=== PATIENT | male | born 1955 | race Two or more races ===

== ENCOUNTER 2020-04-23 07:12 | Emergency (ER) | payer OTHER ==
[~2020-04-23] VITALS: Ht 162.6 cm; Wt 54.0 kg
--- NOTE | 2020-04-23 07:11 | NUR ---
ED Nurse Note: pt biba RA [id number] from half-way for callous-like hardened area on bilatereal sole of feet. No open skin noted, no drainage, no redness, no inflamattion or signs of infection noted. Pt reports he has had this callous for 3 years but has recently become more painful in the last day, rates pain 5/10.
[2020-04-23 07:12] VITALS: BP 153/79
[2020-04-23] MEDS ORDERED: IBUPROFEN600 M1 ORAL (07:20)
[2020-04-23] MEDS ORDERED: [UNRECOGNIZED DRUG - OTHER] TP (07:20)
--- NOTE | 2020-04-23 07:23 | Emergency Room Report ---
History of Present Illness General Chief Complaint: General Complaint Source: Patient Present Illness HPI Disclaimer: Please note that this report is being documented using DRAGON technology. This can lead to erroneous entry secondary to incorrect interpretation by the dictating instrument. HPI: 65-year-old male presents for evaluation of bilateral foot pain. Patient states he has had chronic wounds over the feet for the past 4 years. Has been using a medicated lotion for the past 4 months with some improvement. [facility] complaining of worsening pain. Denies new injury. Denies numbness or tingling. Does not follow podiatry. Denies skin breakdown, bleeding, bruising, mass, purulence, erythema. PMH: Hypertension, hyperlipidemia, pancreatitis PSH: Reviewed Allergies: Denied Social Hx: Daily tobacco use Allergies: Coded Allergies: No Known Allergies (Unverified , 04/23/20) COVID-19 Screening Contact w/high risk pt: No Experienced COVID-19 symptoms?: No COVID-19 Testing performed BOOKKEEPER ASSISTANT: No Nursing Documentation-PMH Hx Hypertension: Yes Hx Asthma: Yes Review of Systems All Other Systems: negative except mentioned in HPI Physical Exam Vital Signs Date Time Temp Pulse Resp B/P (MAP) Pulse Ox O2 Delivery O2 Flow Rate FiO2 04/23/20 07:06 98.8 80 18 160/80 (106) 98 Room Air General: Awake and alert, no acute distress HEENT: NC/AT. EOMI. Resp: Normal work of breathing Skin: Intact. No abrasions, laceration or rash over the exposed skin. Over the patient's plantar surfaces he has 1 corn at the base of the second MPJ and over the right foot there is another corn at the base of the fifth MTPJ. Mildly tender to palpation, firm overlying skin. No evidence of infection. No erythema, no edema, no fluctuance, no purulent drainage, no bleeding, no skin sloughing, no vesicles or other findings. MSK: Normal tone and bulk. Moving all extremities. No obvious deformity. Neuro: Awake and alert. Mentating appropriately Medical Decision Making Homeless Attestation Patient has been medically screened and is stable for outpatient follow up Diagnostic Impression: Primary Impression: Corns and callosities ER Course 65-year-old male presenting for evaluation of bilateral foot pain. Longstanding corns and calluses over his feet. No change in his condition. He will be referred to podiatry and prescribed [id number] corn and callus remover as well as pain medication. He is stable to return [facility] and follow-up on an outpatient basis with podiatry. Patient appreciates the referrals and states he will follow-up with them as soon as he can. He is requesting something to eat prior to discharge which we will provide. Instructed to return to the ED with new or worsening symptoms. Last Vital Signs Date Time Temp Pulse Resp B/P (MAP) Pulse Ox O2 Delivery O2 Flow Rate FiO2 04/23/20 07:06 98.8 80 18 160/80 (106) 98 Room Air Disposition: HOME, SELF-CARE Condition: Stable Scripts Ibuprofen* (MOTRIN*) 600 Mg Tablet 600 MG ORAL Q6H PRN for For Pain, #30 TAB 0 Refills Prov: Zhou Adams MD 04/23/20 Salicylic Acid (CORN REMOVER) 1 Each Adh..patch 1 EACH TP DAILY for 10 Days, #10 PATCH Prov: Zhou Adams MD 04/23/20 Referrals: Darius Javed DPM, Deborah K. DPM Dardashti, David DPM Patient Instructions: Bunionectomy Additional Instructions: Please follow-up with 1 of the livestock auctioneer listed here in your discharge instructions for further evaluation of your corns and calluses. Use padding to help with pain while walking. Return to the emergency department new or worsening symptoms. Zhou Adams MD Apr 23, 2020 07:23
[2020-04-23] MEDS ORDERED: HYDROcodone/Acetamin 5/325 tab ORAL ONE (07:30)
[2020-04-23 07:35] VITALS: BP 154/80
--- NOTE | 2020-04-23 07:35 | NUR ---
ER DISCHARGE NOTE: Patient is cleared to be discharged per ERMD, pt is aox4, on room air, with stable vital signs. pt was given dc and prescription instructions, pt was able to verbalize understanding, pt id band removed. pt is able to ambulate with steady gait. pt took all belongings.
== END 2020-04-23 07:35 | disposition home or self-care (01) ==
LOC: EDBD 07:12 → EMR 07:31
DX: L84 Corns and callosities (principal); M25.572 Pain in left ankle and joints of left foot; M25.571 Pain in right ankle and joints of right foot; I10 Essential (primary) hypertension; E78.5 Hyperlipidemia, unspecified
CPT/HCPCS: 99282